=== PATIENT | male | born 1995 | race Caucasian/White ===

== ENCOUNTER 2017-12-23 15:29 | Emergency (ER) | END 2017-12-23 18:19 | disposition home or self-care (01) ==

== ENCOUNTER 2018-01-31 00:48 | Emergency (ER) | END 2018-01-31 02:42 | disposition home or self-care (01) ==

== ENCOUNTER 2018-05-26 01:48 | Emergency (ER) | END 2018-05-26 04:36 | disposition home or self-care (01) ==